=== PATIENT | female | born 1975 | race American Indian/Alaskan Native ===

== ENCOUNTER 2017-06-20 06:14 | Emergency (ER) | payer SELFPAY ==
--- NOTE | 2017-06-20 10:33 | XRay Report ---
LEFT ANKLE RADIOGRAPHS INDICATION: Fall, swelling, pain. COMPARISON: None similar at this institution. FINDINGS: AP, lateral and oblique left ankle radiographs demonstrate intact mortise, malleoli and talar dome contour. Mild soft tissue swelling noted laterally. Small joint effusion anteriorly also not excluded. CONCLUSION: Left ankle soft tissue swelling/injury possible without acute bony abnormality, as described. Please correlate. Thank you for the opportunity to participate in this patient's care.
--- NOTE | 2017-06-20 14:10 | Emergency Department Report ---
ED Fall HPI - General Chief Complaint: Fall Stated Complaint: FALL Time Seen by Provider: 06/20/17 14:08 Source: patient, family Mode of arrival: Ambulatory - History of Present Illness Initial Comments: Patient airport that she had a ground-level fall yesterday and she injured her left ankle by twisting when she stepped into a hole and SHE is having back pain but denies any traumatic back injury. Denies any head injury or loss of consciousness. Reports swelling to the left ankle. Pain 8/10 to left ankle and throbbing. Pain 2/10 lower back and achy. Denies any urinary frequency. Near urgency denies any nausea or vomiting. Denies any fever or chills. Denies any loss of bowel or bladder function. Denies any numbness or tingling to her extremities. Her pain is worse with movement and better with resting. No [id number] medication taken for pain MD Complaint: fall Onset/Timin -: days(s) Fall From: standing When Fall Occurred: # days PURLER (1) Fall Witnessed: yes, by family Place Fall Occurred: home Loss of Consciousness: none Prolonged Down Time?: no Symptoms Prior to Fall: none Location: back Location - Extremities: Left: Ankle (pain and swelling) Severity: severe Severity scale (0 -10): 8 Quality: aching, other (Throbbing) Context: tripped/slipped Associated Symptoms: unable to walk. denies: headache, neck pain, numbness, weakness, chest paint, shortness of breath, abdominal pain, hematuria, lightheaded, vertigo, confusion - Related Data Previous Rx's Medication Instructions Recorded Last Taken Type Ibuprofen [Motrin] 600 mg PO Q8H PRN 5 Days #15 tablet 06/20/17 Unknown Rx Allergies Allergy/AdvReac Type Severity Reaction Status Date / Time No Known Allergies Allergy Unverified 06/20/17 08:38 ED Review of Systems ROS: Stated complaint: FALL Other details as noted in HPI Comment: All other systems reviewed and negative Constitutional: no symptoms reported Respiratory: no symptoms reported Cardiovascular: denies: chest pain, palpitations, dyspnea on exertion, orthopnea , edema, syncope, paroxysmal nocturnal dyspnea Gastrointestinal: denies: abdominal pain, nausea, vomiting, diarrhea, constipation Genitourinary: denies: urgency, dysuria, frequency, hematuria, discharge Skin: denies: rash Neurological: abnormal gait (due to left ankle injury). denies: headache, weakness, numbness, paresthesias, confusion, vertigo ED Past Medical Hx - Past Medical History Previous Medical History?: No - Surgical History Past Surgical History?: No - Family History Family history: no significant - Social History Smoking Status: Current Some Day Smoker Substance Use Type: Alcohol - Medications Home Medications: Home Medications Medication Instructions Recorded Confirmed Last Taken Type Ibuprofen [Motrin] 600 mg PO Q8H PRN 5 Days #15 tablet 06/20/17 Unknown Rx ED Physical Exam - General Limitations: No Limitations General appearance: alert, in no apparent distress - Head Head exam: Present: atraumatic, normocephalic, normal inspection, other (oral examination) - Eye Eye exam: Present: normal appearance, PERRL, EOMI. Absent: periorbital swelling , periorbital tenderness Pupils: Present: normal accommodation - ENT ENT exam: Present: normal exam, normal orophraynx, mucous membranes moist - Neck Neck exam: Present: normal inspection, full ROM, other (no C-spine tenderness). Absent: tenderness, meningismus, lymphadenopathy, thyromegaly - Respiratory Respiratory exam: Present: normal lung sounds bilaterally. Absent: respiratory distress, chest wall tenderness, accessory muscle use - Cardiovascular Cardiovascular Exam: Present: regular rate, normal rhythm, normal heart sounds. Absent: systolic murmur, diastolic murmur - GI/Abdominal GI/Abdominal exam: Present: soft, normal bowel sounds. Absent: distended, tenderness, guarding, rebound, rigid, organomegaly, mass, bruit, pulsatile mass , hernia - Extremities Exam Extremities exam: Present: tenderness, normal capillary refill, joint swelling, other (+2 pulses all extremities. No neurovascular compromise. +5 strength all extremities except for left ankle with diminished strength due to ankle sprain.). Absent: normal inspection, full ROM, pedal edema, calf tenderness - Expanded Lower Extremity Exam Left Hip exam: Present: normal inspection, full ROM, pelvic stability. Absent: tenderness, swelling, abrasion, laceration, ecchymosis, deformity, crepidus, dislocation, erythema, external rotation, internal rotation, shortening Upper Leg exam: Present: normal inspection, full ROM. Absent: tenderness, swelling, abrasion, laceration, ecchymosis, deformity, crepidus, dislocation, erythema Knee exam: Present: normal inspection, full ROM, full knee extension. Absent: tenderness, swelling, abrasion, laceration, ecchymosis, deformity, crepidus, dislocation, erythema, effusion, pain w/ pronation/supination, posterior draw sign, pain/laxity with valgus, pain/laxity with varus Lower Leg exam: Present: normal inspection, full ROM. Absent: tenderness, swelling, abrasion, laceration, ecchymosis, deformity, crepidus, dislocation, erythema, palpable cord, Leonides's sign Ankle exam: Present: full ROM (patient with limited range of motion to left ankle due to sprain, pain and swelling from injury), tenderness (left ankle), swelling (left ankle). Absent: normal inspection, abrasion, laceration, ecchymosis, deformity, crepidus, dislocation, erythema Foot/Toe exam: Present: normal inspection, full ROM. Absent: tenderness, swelling, abrasion, laceration, ecchymosis, deformity, crepidus, dislocation, erythema, amputation, puncture wound, foreign body, calcaneal tenderness, tenderness at base of 5th metatarsal, nail avulsion, subungual hematoma Neuro vascular tendon exam: Present: no vascular compromise, significant pain with passive ROM of distal joint. Absent: pulse deficit, abnormal cap refill, motor deficit, sensory deficit, tendon deficit, extremity cold to touch, pallor , abnormal 2-point discrimination, decreased fine/light touch, foot drop, peroneal nerve deficit Gait: Positive: antalgic - Back Exam Back exam: Present: normal inspection, full ROM, other (patient ambulates without any difficulties). Absent: tenderness, CVA tenderness (R), CVA tenderness (L), muscle spasm, paraspinal tenderness, vertebral tenderness, rash noted - Expanded Back Exam Expanded Back exam: Absent: saddle anesthesia Back exam: Negative Straight Leg Raising: Left, Right - Neurological Exam Neurological exam: Present: alert, oriented X3, abnormal gait, reflexes normal. Absent: motor sensory deficit - Expanded Neurological Exam Expanded Neurological exam: Absent: innattentive, memory loss-remote event, memory loss- recent event, ataxia, receptive aphasia, expressive aphasia, total aphasia, tremor, protecting the airway Patient oriented to: Present: person, place, time Speech: Present: fluid speech Cranial nerves: EOM's Intact: Normal, Gag Reflex: Normal, Tongue Deviation: Normal, Nystagmus: Normal, Facial Sensation: Normal Cerebellar function: Romberg: Normal Upper motor neuron: Pronator Drift: Normal, Sensory Extinction: Normal Sensory exam: Upper Extremity Light Touch: Normal, Upper Extremity Temperature: Normal, UE 2 Point Discrimination: Normal, Lower Extremity Light Touch: Normal, Lower Extremity Temperature: Normal, LE 2 Point Discrimination: Normal Motor strength exam: RUE: 5, LUE: 5, RLE: 5, LLE: 5 DTR: bicep (R): 2+, bicep (L): 2+, tricep (R): 2+, tricep (L): 2+, knee (R): 2+ , knee (L): 2+, ankle (R): 2+, ankle (L): 2+ Best Eye Response ([place]): (4) open spontaneously Best Motor Response ([place]): (6) obeys commands Best Verbal Response ([place]): (5) oriented [place] Total: 15 - Psychiatric Psychiatric exam: Present: normal affect, normal mood - Skin Skin exam: Present: warm, dry, intact, normal color. Absent: rash ED Course Vital Signs 06/20/17 06/20/17 06/20/17 08:38 14:21 14:30 Temperature 98.8 F 97.8 F Pulse Rate 79 85 Respiratory 18 18 18 Rate Blood Pressure 187/109 Blood Pressure 163/102 [Left] O2 Sat by Pulse 100 100 Oximetry 06/20/17 14:47 Temperature Pulse Rate Respiratory Rate Blood Pressure Blood Pressure 142/84 [Left] O2 Sat by Pulse Oximetry - Reevaluation(s) Reevaluation #1: 06/20/17 14:52 Patient given 5/325 2 tablets when necessary emergency room for ankle sprain - Orthopedic Splinting/Casting Injury #1 Side: left Lower Extremity Injury Location: ankle Lower Extremity Immobilizer: stirrup splint Other Orthopedic Equipment: crutches Additional Comments: Patient with good neurovascular check status post ankle stirrup placement ED Medical Decision Making - Radiology Data Radiology results: report reviewed X-ray of left ankle reveal no acute fracture or dislocation. Soft tissue swelling seen. - Medical Decision Making ED course: Patient here status post fall yesterday with complaint of left ankle pain and swelling in lower back pain. Patient neurologically intact under back exam and neck exam is normal. Physical findings for left ankle pain and swelling and tenderness to palpate. X-ray of left ankle reveal no acute bony abnormalities but soft tissue swelling noted. I discussed this with patient and she voiced understanding. Patient was given [place] 5/325 2 tablets emergency room for pain which relieved her pain. She was placed in ankle stirrup and crutches. Patient to follow up with orthopedic doctor in 2-3 days and I discussed with her Rice therapy and to take Motrin as prescribed to reduce inflammation and rest for 3 days. She voiced understanding and discharged home in stable condition with prescription for Motrin. Patient blood pressure was elevated in triage area suspect from pain after pain medication her blood pressure is now 142/84. I discussed with her she needs to keep a log of her blood pressure on a daily basis and for evaluation. Critical care attestation.: If time is entered above; I have spent that time in minutes in the direct care of this critically ill patient, excluding procedure time. ED Disposition Clinical Impression: Fall from ground level Left ankle sprain Qualifiers: Encounter type: initial encounter Involved ligament of ankle: unspecified ligament Qualified Code(s): S93.402A - Sprain of unspecified ligament of left ankle, initial encounter Left ankle injury Qualifiers: Encounter type: initial encounter Qualified Code(s): S99.912A - Unspecified injury of left ankle, initial encounter Lower back pain Qualifiers: Chronicity: acute Back pain laterality: bilateral Sciatica presence: without sciatica Qualified Code(s): M54.5 - Low back pain Disposition: - TO HOME OR SELFCARE Is pt being admited?: No Does the pt Need Aspirin: No Condition: Stable Instructions: Ankle Exercises (GEN), Ankle Stirrup Splint (ED), Ankle Sprain ( ED), Back Pain (ED) Additional Instructions: please follow up with orthopedic doctor as instructed The discharge information on splint care and Rice therapy Take Motrin as prescribed for pain and reduction of inflammation Prescriptions: Ibuprofen [Motrin] 600 mg PO Q8H PRN 5 Days #15 tablet PRN Reason: Pain Referrals: LAMINE PEREA MD [Staff Physician] - 2-3 Days Forms: Work/School Release Form(ED), Accompanied Note
[2017-06-20] MEDS ORDERED: NORCO 5/325 PO ONE (14:11)
[2017-06-20 14:48] VITALS: BP 142/84
== END 2017-06-20 15:47 | disposition home or self-care (01) ==
LOC: ED 06:14
DX: S93.402A Sprain of unspecified ligament of left ankle, initial encounter (principal); F17.200 Nicotine dependence, unspecified, uncomplicated; W18.39XA Other fall on same level, initial encounter; Y93.89 Activity, other specified; Y92.89 Other specified places as the place of occurrence of the external cause; Y99.8 Other external cause status